=== PATIENT | male | born 1985 | race Caucasian/White ===

== ENCOUNTER 2017-07-29 13:17 | Emergency (ER) | payer OTHER ==
[~2017-07-29] VITALS: Ht 167.6 cm; Wt 68.0 kg
[~2017-07-29 13:17] MED LIST: ALBUTEROL0.09 MG/A1 INH; ALBUTEROL0.09 MG/A2 IH; AMOXICILLIN500 MG PO; ATARAX25 MG PO; BACTRIM DS 8001 TA1 PO; BENADRYL50 MG PO; BENTYL10 MG PO; CEPHALEXIN500 M1 PO; CYCLOBENZAPRINE10 MG PO; DEBROX 15 ML15 M1 OT; FLEXERIL10 MG PO; FLEXERIL5 MG PO; IBU-8800 MG PO; IBU800 MG PO; KEFLEX500 MG PO; MEDROL DOSEPAK4 MG PO; MOTRIN800 MG PO; Motrin,Rufen800 MG PO; NAPROSYN500 MG PO; NKHM; PREDNICOT20 MG PO; PROTONIX40 MG PO; ROBAXIN750 MG PO; TRAMADOL HCL50 MG PO; ULTRAM50 MG PO; VICODIN 5/500 505 MG PO; VICODIN ES 7501 TAB PO; VOLTAREN50 M1 PO; ZANTAC150 MG PO; ZITHROMAX Z PA250 MG PO; ZITHROMAX250 MG PO; ZOFRAN ODT4 MG SL; Zofran4 MG PO
== END 2017-07-29 13:39 | disposition home or self-care (01) ==
LOC: ED 13:17
DX: S61.011A Laceration without foreign body of right thumb without damage to nail, initial encounter (principal); F17.200 Nicotine dependence, unspecified, uncomplicated; W26.0XXA Contact with knife, initial encounter; Y93.89 Activity, other specified; Y92.89 Other specified places as the place of occurrence of the external cause; Y99.9 Unspecified external cause status

== ENCOUNTER 2017-11-23 07:54 | Emergency (ER) | payer SELFPAY ==
[~2017-11-23] VITALS: Ht 167.6 cm; Wt 72.6 kg
[2017-11-23] MEDS ORDERED: FLOXIN10 ML OT (08:10)
[2017-11-23] MEDS ORDERED: CIPRO500 MG PO (08:10)
== END 2017-11-23 08:18 | disposition home or self-care (01) ==
LOC: ED 07:54
DX: H60.91 Unspecified otitis externa, right ear (principal)

== ENCOUNTER 2017-12-20 01:03 | Emergency (ER) | payer SELFPAY ==
[~2017-12-20] VITALS: Ht 167.6 cm; Wt 68.0 kg
[~2017-12-20 01:03] MED LIST changes: +CIPRO500 MG PO; +FLOXIN10 ML OT
== END 2017-12-20 02:45 | disposition home or self-care (01) ==
LOC: ED 01:03
DX: M79.641 Pain in right hand (principal)

== ENCOUNTER 2018-04-24 20:20 | Emergency (ER) | payer SELFPAY ==
[~2018-04-24] VITALS: Ht 167.6 cm; Wt 68.0 kg
[~2018-04-24 20:20] MED LIST changes: +AMOXICILLIN500 M2 PO
[2018-04-24] MEDS ORDERED: AUGMENTIN 875-875 MG PO (20:41)
== END 2018-04-24 21:53 | disposition home or self-care (01) ==
LOC: ED 20:20
DX: H66.002 Acute suppurative otitis media without spontaneous rupture of ear drum, left ear (principal); J02.9 Acute pharyngitis, unspecified

== ENCOUNTER 2019-12-15 23:55 | Inpatient (IN) | payer OTHER ==
[~2019-12-15] VITALS: Ht 172.7 cm; Wt 63.6 kg
[~2019-12-15 23:55] MED LIST changes: +AUGMENTIN 875-875 MG PO
[2019-12-16] VITALS (9 sets, daily range): BP systolic 89–110; BP diastolic 45–78
[2019-12-16 00:19] LABS: BASO # 0.1 10*3/uL (0.0-0.1); BASO % 0.6 % (0.0-1.0); EOS # 0.2 10*3/uL (0.0-0.4); EOS % 2.2 % (1.0-4.0); HEMATOCRIT 46.1 % (42.0-52.0); LYMPH # 1.5 10*3/uL (1.3-4.4); LYMPH % 16.1 % (27.0-41.0); MEAN CELL VOLUME 95.6 fl (80.0-94.0); MEAN CORPUSCULAR HGB 32.4 pg (27.0-31.0); MEAN CORPUSCULAR HGB CONC 33.8 g/dl (33.0-37.0); MEAN PLATELET VOLUME 10.6 fl (9.6-12.3); MONO # 0.8 10*3/uL (0.1-1.0); MONO % 8.4 % (3.0-9.0); NEUT # 6.9 10*3/uL (2.3-7.9); NEUT % 72.4 % (47.0-73.0); PLATELET COUNT AUTOMATED 145 10*3/uL (130-400); RED BLOOD COUNT 4.82 10*6/uL (4.50-5.90); RED CELL DISTRI WIDTH 13.4 % (0-14.5); WHITE BLOOD COUNT 9.5 10*3/uL (4.8-10.8)
[2019-12-16 00:36] LABS: ALBUMIN 3.4 gm/dl (3.1-4.5); ALKALINE PHOSPHATASE 60 U/L (45-117); BUN 16 mg/dl (7-24); CHLORIDE 110 mmol/L (98-107); CREATININE 0.96 mg/dL (0.70-1.30); POTASSIUM 3.4 mmol/L (3.5-5.1); SGOT/AST 80 IU/L (3-35); SGPT/ALT 155 U/L (12-78); SODIUM 140 mmol/L (136-145); TOTAL PROTEIN 7.1 gm/dL (6.4-8.2)
[2019-12-16 00:38] LABS: ACETAMINOPHEN (TYLENOL) < 5.0 ug/ml (10-30); ETHYL ALCOHOL < 3.0 mg/dl (<3)
[2019-12-16 02:29] LABS: BILIRUBIN NEGATIVE (NEGATIVE); BLOOD NEGATIVE (NEGATIVE); CLARITY CLEAR (CLEAR); COLOR YELLOW (YELLOW); GLUCOSE NEGATIVE (NEGATIVE); KETONE NEGATIVE (NEGATIVE); LEUKO ESTERASE NEGATIVE (NEGATIVE); NITRITE NEGATIVE (NEGATIVE); UROBILINOGEN 0.2 E.U./dl (0.2-1.0)
[2019-12-16 02:37] LABS: URINE AMPHETAMINES > 1000 (1000ng/ml); URINE BARBITURATES < 200 (200ng/ml); URINE BENZODIAZEPINES < 200 (200ng/ml); URINE CANNABINOIDS (THC) < 50 (50ng/ml); URINE COCAINE < 300 (300ng/ml); URINE METHADONE < 300 (300ng/ml); URINE OPIATES < 300 (300ng/ml)
[2019-12-16 02:44] LABS: URINE PHENCYCLIDINE < 25 (25ng/ml)
--- NOTE | 2019-12-16 04:00 | NUR ---
A 34 YEAR OLD MALE admitted to [facility], under the services of OPAL Salmeron DO with a diagnosis of DRUG OVERDOSE. Chief complaint is TOOK ENTIRE BOTTLE OF DOXEPIN. Patient arrived via stretcher from ER. Monitor applied. Initial assessment completed. Vital signs taken and recorded. OPAL SALMERON DO notified of admission to the unit. Orders received. See assessment for past medical history, medications and allergies. Patient and/or family oriented to unit. [facility] visitation policy reviewed. Clothing/patient valuable form completed. JUAN VARELA
[2019-12-16 06:10] LABS: BASO # 0.1 10*3/uL (0.0-0.1); BASO % 0.5 % (0.0-1.0); EOS # 0.1 10*3/uL (0.0-0.4); EOS % 1.3 % (1.0-4.0); LYMPH # 1.6 10*3/uL (1.3-4.4); LYMPH % 16.8 % (27.0-41.0); MEAN CELL VOLUME 96.1 fl (80.0-94.0); MEAN CORPUSCULAR HGB 32.8 pg (27.0-31.0); MEAN CORPUSCULAR HGB CONC 34.1 g/dl (33.0-37.0); MEAN PLATELET VOLUME 11.3 fl (9.6-12.3); MONO # 0.8 10*3/uL (0.1-1.0); NEUT # 6.9 10*3/uL (2.3-7.9); NEUT % 73.1 % (47.0-73.0); PLATELET COUNT AUTOMATED 147 10*3/uL (130-400); RED BLOOD COUNT 4.58 10*6/uL (4.50-5.90); RED CELL DISTRI WIDTH 13.5 % (0-14.5); WHITE BLOOD COUNT 9.4 10*3/uL (4.8-10.8)
[2019-12-16 06:13] LABS: ALBUMIN 3.3 gm/dl (3.1-4.5); BUN 16 mg/dl (7-24); CHLORIDE 110 mmol/L (98-107); CREATININE 0.85 mg/dL (0.70-1.30); POTASSIUM 4.2 mmol/L (3.5-5.1); SGOT/AST 75 IU/L (3-35); SGPT/ALT 150 U/L (12-78); SODIUM 140 mmol/L (136-145); TOTAL PROTEIN 6.9 gm/dL (6.4-8.2)
[2019-12-16 06:22] LABS: ALKALINE PHOSPHATASE 58 U/L (45-117)
--- NOTE | 2019-12-16 07:09 | NUR ---
Shift chart check completed.
--- NOTE | 2019-12-16 08:45 | NUR ---
DR PLEITEZ ROUNDED - PATIENT REMAINS VERY DROWSY & DIFFICULT TO AROUSE BUT DID SOMEWHAT TO VERBAL W/ TACILE STIMULI - SLIGHTLY OPENED EYES. ALLOWED BLOOD TO BE DRAWN BUT WAS UNABLE TO ANSWER ANY QUESTIONS..NATHALIE REMAINS PATENT FOR DK STRAW URINE. IVF INFUSING AT 100cc/hr.
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
--- NOTE | 2019-12-16 09:14 | NUR ---
DR HOLDEN WILLAMS -
--- NOTE | 2019-12-16 10:24 | NUR ---
attempted to see client and he is asleep and not able to be assessed. nursing will let me know when he is awake and alert.
--- NOTE | 2019-12-16 10:37 | NUR ---
SPOKE WITH POISON CONTROL re PATIENT CONDITION. BENZO'S IF NECESSARY TO CONTROL AGGITATION/TREMORS BUT PATIENT SHOULD BE PAST NEEDING THEM. JUST CONTINUE TO MONITOR UNTIL ALERT & ORIENTED. NO FURTHRE TREATMENTS NEEDED
--- NOTE | 2019-12-16 11:53 | NUR ---
Shift chart check completed.24 HR chart check completed.
--- NOTE | 2019-12-16 12:16 | NUR ---
ASSUMED CARE OF THIS PATIENT. HE REMAINS ASLEEP WITH NON LABORED RESPIRATIONS. HEAD OF BED IS ELEVATED. ZELAYA INTACT. IV FLUIDS CONTINUE. NO SEIZURE ACTIVITY. ROOM AIR PULSE OX IS >95%. HE IS IN DIRECT VIEW OF ICCU STAFF AT ALL TIMES. HIS BELONGINGS ARE BAGGED/TAGGED AND STORED IN BOTTOM CUPBOARD AT THE FOOT OF HIS BED. BED EXIT ALARM IS ACTIVATED.
--- NOTE | 2019-12-16 15:00 | NUR ---
IV FLUIDS COMPLETE. WHEN DISCONNECTING THE TUBING PT DID ASK "WHERE AM I?" AND WHEN TOLD WHY HE WAS HERE HE SAID "NO" HE DIDN'T REMEMBER TAKING PILLS. BACK TO SLEEP.
--- NOTE | 2019-12-16 15:57 | NUR ---
PT AWAKE DURING VITAL SIGN/ASSESSMENT. HE C/O PAIN IN HIS NECK "CAN'T MOVE MY HEAD". PILLOW REPOSITIONED, PT YELLED "OW" THEN BACK TO SLEEP. HE'S BEEN LYING WITH HIS HEAD TURNED TO THE LEFT MOST OF THE DAY. HE MOVES ALL OF HIS EXTREMITIES IN HIS SLEEP.
--- NOTE | 2019-12-16 20:13 | NUR ---
1930 RESTING IN BED WITH HOB ELEVATED. SIDE RAILS UP X'S 2. BED EXIT ON. REMAINS IN DIRECT SIGHT OF NURSES STATION. HEP LOCK INTACT YOHAN. PULSE OX 100% ON RA. OPENED EYES TO NAME. DID NOT FOLLOW COMMANSD AT PRESENT TIME. ZELAYA PATENT AND DRAINING YELLOW URINE. HEAD REMAINS TURNED TO THE LEFT SIDE. NO DISTRESS NOTED. WILL CONT TO MONITOR.
--- NOTE | 2019-12-16 23:20 | NUR ---
2320 AWAKE. TURNED ON RIGHT SIDE. STATES "MY NECK HURTS." TYLENOL 2 PO GIVEN FOR THIS. TOOK PO MEDS WITHOUT DIFFICULTY. REQUESTING "SOMETHING TO EAT". FELL BACK TO SLEEP WHILE OBTAINING BOXED LUNCH FOR PT. WILL CONT TO MONITOR.
[2019-12-17] VITALS: BP 99/65
--- NOTE | 2019-12-17 00:20 | NUR ---
0020 EARLIER TYLENOL APPEARS EFFECTIVE. NO FURTHER C/O'S NECK PAIN VOICED. 0400 REMAINS SLEEPING WITHOUT DISTRESS. RESPIRATIONS EASY AND UNLABORED. CHANGED POSITION IN BED PER SELF.
[2019-12-17 04:00] VITALS: BP 98/56
[2019-12-17 05:40] LABS: ALBUMIN 3.1 gm/dl (3.1-4.5); ALKALINE PHOSPHATASE 56 U/L (45-117); BUN 16 mg/dl (7-24); CHLORIDE 112 mmol/L (98-107); CREATININE 0.96 mg/dL (0.70-1.30); SGOT/AST 92 IU/L (3-35); SGPT/ALT 150 U/L (12-78); SODIUM 142 mmol/L (136-145); TOTAL PROTEIN 6.7 gm/dL (6.4-8.2)
--- NOTE | 2019-12-17 06:08 | NUR ---
0500 AWAKENED FOR AM LABS, BUT FALLS BACK TO SLEEP IMMEDIATELY. 0600 REMAINS SLEEPING WIHTOUT DISTRESS. HEP LOCK INTACT. BED ALARM REMAINS ON. CONDITION GUARDED.
--- NOTE | 2019-12-17 07:11 | NUR ---
Shift chart check completed.24 HR chart check completed.
[2019-12-17 07:15] LABS: HEP B CORE AB, IGM Negative (Negative); HEPATITIS B SURFACE AG Negative (Negative)
[2019-12-17 07:28] LABS: HEPATITIS C VIRUS ANTIBODY >11.0 s/co (0.0-0.9)
--- NOTE | 2019-12-17 07:31 | NUR ---
DR Symone PLEITEZ NOTIFIED OF CRITICAL VALUE, POSITIVE HEPATITIS C ANTIBODIES.
--- NOTE | 2019-12-17 07:56 | NUR ---
ON ASSESSMENT PATIENT IS SLEEPING. HE AROUSED TO HIS NAME, SAID "YES" HE WAS HUNGRY AND WHEN GIVEN THE CHOICES SAID "YES" OR "NO" AND "TEA". HE REPOSITIONS HIMSELF FOR COMFORT. HIS SKIN IS WARM AND DRY. BED IS IN LOW POSITION WITH WHEELS LOCKED, SIDERAILS UP, AND BED EXIT ALARM ACTIVATED. HIS PERSONAL BELONGINGS REMAINS BAGGED/TAGGED AND IN BOTTOM OF CUPBOARD AT THE FOOT OF HIS BED. HE IS IN FULL VIEW OF [facility] STAFF AT ALL TIMES. ZELAYA PATENT SMALL AMOUNT SARAY URINE. SEE ALL APPROPRIATE INTERVENTIONS.
[2019-12-17 08:00] VITALS: BP 96/60
--- NOTE | 2019-12-17 08:20 | NUR ---
AWAKENED WHEN BREAKFAST ARRIVED. HE'S EATING WITHOUT DIFFICULTY. COOPERATIVE. I ASKED IF HE WAS TRYING TO WHEN HE TOOK THE BOTTLE OF PILLS AND HE SAID "I DON'T KNOW".
--- NOTE | 2019-12-17 08:53 | NUR ---
PT WAS AWAKE, QUICKLY ATE ALL OF HIS PANCAKES AND OJ AND IS QUICKLY BACK TO SLEEP.
--- NOTE | 2019-12-17 08:57 | NUR ---
TASHA LOWE NOTIFIED THAT PT IS ABLE TO STAY AWAKE AND CONVERSE THIS AM. DR PLEITEZ HAS VISITED.
--- NOTE | 2019-12-17 09:19 | NUR ---
TASHA LOWE IN TO SEE PATIENT.
--- NOTE | 2019-12-17 09:33 | NUR ---
psychiatric assessment: met with client, he is aroused easily. he reports that he doesnt remember a lot of what happened but reports that he did take pills, does not know whose pills there were as he doesnt have any medications, and does not seek any mental health care. he does report one attempt years ago as an overdose but reports he did not get any help at that time. he reports that he is always depressed and always has suicidal thoughts due to stress that he reports as he cant pay his bills, he cant get a job, fighting with his girlfriend. he reports that he resides here and there. he does not feel safe to be dc and does continue to have suicidal thoughts. i discussed with his nurse, dr golden and dr graves , my recommendation, they are in agreement and i will look for an inpatient bed for him. he has no psychosis, he is alert and oriented to person and place. he denies any substance abuse but he was postive for amphetamines. he is cooperative and i discusseed with his my recommendation for further care and he was in agreement.
--- NOTE | 2019-12-17 10:53 | NUR ---
PT WAS AWAKENED AND OFFERED THE PHONE TO SPEAK WITH HIS MOTHER WHO HAD CALLED HERE. PT DECLINED. QUICKLY BACK TO SLEEP.
[2019-12-17 12:00] VITALS: BP 97/58
--- NOTE | 2019-12-17 12:15 | NUR ---
TASHA LOWE HAS CALLED WITH REQUEST TO FAX SIGNED PINK SLIP TO [facility] AND THIS HAS BEEN DONE. PT MOSTLY SLEEPING.
--- NOTE | 2019-12-17 12:42 | NUR ---
PT DECLINED LUNCH.
--- NOTE | 2019-12-17 14:19 | NUR ---
[facility] DID CALL THIS MORNING TO CHECK ON PT'S STATUS. NO NEW RECOMMENDATIONS FROM THEM.
--- NOTE | 2019-12-17 15:54 | NUR ---
TASHA LOWE CALLED WITH ACCEPTING PHYSICIAN, DR PRICE, AT [facility]. I GAVE A NURSE TO NURSE TO TASHA. DR PLEITEZ HAS BEEN NOTIFIED FOR DISCHARGE ORDER. [facility] [employer] [facility] IS ATTEMPTING TO MAKE TRANSPORTATION ARRANGEMENTS.
[2019-12-17 16:00] VITALS: BP 91/49
--- NOTE | 2019-12-17 16:51 | NUR ---
PT AWAKENED AND INFORMED OF PLAN OF CARE TO BE DISCHARGED TO [facility] IN [place]. HE SAID "I DON'T WANT TO GO THERE". I INFORMED HIM OF THE PINK SLIP. HE SAID "HOW DID THEY FIND ME? I WENT TO THE [facility] TO ". ENCOURAGEMENT GIVEN TO GET HELP. HE SAYS THAT I CAN LET HIS MOTHER AND SISTER KNOW WHERE HE IS GOING AND HE SAID "YES" BUT "NO" HE DIDN'T WANT TO TALK TO EITHER OF THEM. GIL ORDERED FOR HIM. HIS ZELAYA CATHETER HAS BEEN REMOVED. HE REMAINS COOPERATIVE. I INFORMED HIM THAT IN HIS BAG OF BELONGINGS IS A SLIP OF PAPER WITH THEIR PHONE NUMBERS AND HIS SCHEDULED APPT FOR JANUARY 04 AT 1430.
--- NOTE | 2019-12-17 17:29 | NUR ---
MOTHER CALLED IN. PT GAVE ME PERMISSION TO LET HER KNOW WHERE HE IS GOING AND SHE HAS BEEN NOTIFIED.
--- NOTE | 2019-12-17 17:58 | NUR ---
[facility] NOTIFIED PT ON HIS WAY. PT'S SISTER NOTIFIED ALSO.
--- NOTE | 2019-12-17 17:59 | NUR ---
HEP LOCK REMOVED LEFT UPPER ARM. PT DISCHARGED IN STABLE CONDITION VIA [facility] WITH HIS BAG OF CLOTHES.
== END 2019-12-17 17:58 | disposition home health service (06) | DRG 817 ==
LOC: ED 23:55 → ICCU 12-16 03:41 → EDHOLD 12-16 03:41 → ICCU 12-16 03:51
PROVIDERS: Emergency Medicine; Internal Medicine; Student in an Organized Health Care Education/Training Program; ADMIT Internal Medicine
DX: T43.012A Poisoning by tricyclic antidepressants, intentional self-harm, initial encounter (principal); D75.89 Other specified diseases of blood and blood-forming organs; E87.6 Hypokalemia; E87.8 Other disorders of electrolyte and fluid balance, not elsewhere classified; I95.9 Hypotension, unspecified; F15.10 Other stimulant abuse, uncomplicated; R73.9 Hyperglycemia, unspecified; F43.21 Adjustment disorder with depressed mood; R76.8 Other specified abnormal immunological findings in serum; R74.0 Nonspecific elevation of levels of transaminase and lactic acid dehydrogenase [LDH]; Y92.89 Other specified places as the place of occurrence of the external cause; Z91.5 Personal history of self-harm

== ENCOUNTER 2020-03-15 16:29 | Emergency (ER) | payer OTHER ==
[~2020-03-15] VITALS: Wt 61.2 kg
== END 2020-03-15 20:05 | disposition left against medical advice (07) ==
LOC: ED 16:29
DX: S20.412A Abrasion of left back wall of thorax, initial encounter (principal); F32.9 Major depressive disorder, single episode, unspecified; Y08.89XA Assault by other specified means, initial encounter; Y93.89 Activity, other specified; Y92.89 Other specified places as the place of occurrence of the external cause; Y99.8 Other external cause status

== ENCOUNTER 2020-07-16 18:11 | Emergency (ER) | payer OTHER ==
[~2020-07-16] VITALS: Ht 167.6 cm; Wt 65.8 kg
[2020-07-16 19:02] LABS: BASO # 0.1 10*3/uL (0.0-0.1); BASO % 0.8 % (0.0-1.0); EOS # 0.4 10*3/uL (0.0-0.4); EOS % 4.4 % (1.0-4.0); HEMATOCRIT 48.4 % (42.0-52.0); LYMPH # 1.8 10*3/uL (1.3-4.4); LYMPH % 21.7 % (27.0-41.0); MEAN CORPUSCULAR HGB 31.7 pg (27.0-31.0); MEAN CORPUSCULAR HGB CONC 34.5 g/dl (33.0-37.0); MEAN PLATELET VOLUME 10.8 fl (9.6-12.3); MONO # 0.7 10*3/uL (0.1-1.0); MONO % 8.1 % (3.0-9.0); NEUT # 5.4 10*3/uL (2.3-7.9); NEUT % 64.8 % (47.0-73.0); PLATELET COUNT AUTOMATED 174 10*3/uL (130-400); RED BLOOD COUNT 5.26 10*6/uL (4.50-5.90); RED CELL DISTRI WIDTH 12.9 % (0-14.5); WHITE BLOOD COUNT 8.3 10*3/uL (4.8-10.8)
[2020-07-16 19:21] LABS: ACETAMINOPHEN (TYLENOL) < 5.0 ug/ml (10-30); ALBUMIN 3.8 gm/dl (3.1-4.5); ALKALINE PHOSPHATASE 68 U/L (45-117); BUN 17 mg/dl (7-24); CHLORIDE 108 mmol/L (98-107); CPK 197 U/L (39-308); CREATININE 0.85 mg/dL (0.70-1.30); ETHYL ALCOHOL < 3.0 mg/dl (<3); POTASSIUM 3.8 mmol/L (3.5-5.1); SGOT/AST 115 IU/L (3-35); SGPT/ALT 238 U/L (12-78); SODIUM 138 mmol/L (136-145); TOTAL PROTEIN 7.9 gm/dL (6.4-8.2)
[2020-07-16 19:57] LABS: BILIRUBIN Negative (Negative); BLOOD 1+ (Negative); CLARITY Clear (Clear); COLOR Yellow (Yellow); GLUCOSE Negative (Negative); KETONE Negative (Negative); LEUKO ESTERASE Negative (Negative); NITRITE Negative (Negative); PH 7.5 (4.5-8.0)
[2020-07-16 20:00] LABS: URINE AMPHETAMINES > 1000 (1000ng/ml); URINE BARBITURATES < 200 (200ng/ml); URINE BENZODIAZEPINES < 200 (200ng/ml); URINE CANNABINOIDS (THC) < 50 (50ng/ml); URINE COCAINE < 300 (300ng/ml); URINE METHADONE < 300 (300ng/ml); URINE OPIATES < 300 (300ng/ml); URINE PHENCYCLIDINE < 25 (25ng/ml)
[2020-07-16 20:05] LABS: BACTERIA 2+; RBC 31-40 rbc/hpf (0-2)
== END 2020-07-17 00:47 | disposition home health service (06) ==
LOC: ED 18:11
PROVIDERS: Nurse Practitioner Family
DX: F43.21 Adjustment disorder with depressed mood (principal); Z20.828 Contact with and (suspected) exposure to other viral communicable diseases

== ENCOUNTER 2020-12-14 17:31 | Emergency (ER) | payer OTHER ==
[~2020-12-14] VITALS: Wt 65.8 kg
[2020-12-14] MEDS ORDERED: NAPROSYN500 MG PO (19:01)
[2020-12-14] MEDS ORDERED: TYLENOL325 M1 PO (19:01)
== END 2020-12-14 19:50 | disposition home or self-care (01) ==
LOC: ED 17:31
DX: S52.501A Unspecified fracture of the lower end of right radius, initial encounter for closed fracture (principal); W19.XXXA Unspecified fall, initial encounter; Y93.89 Activity, other specified; Y92.89 Other specified places as the place of occurrence of the external cause; Y99.8 Other external cause status

== ENCOUNTER 2021-01-28 16:14 | Inpatient (IN) | payer OTHER ==
[~2021-01-28 16:14] MED LIST changes: +TYLENOL325 M1 PO
[2021-01-28 16:15] VITALS: BP 112/87
[2021-01-28 17:45] LABS: BASO # 0.1 10*3/uL (0.0-0.1); BASO % 0.8 % (0.0-1.0); EOS # 0.3 10*3/uL (0.0-0.4); EOS % 3.5 % (1.0-4.0); HEMATOCRIT 44.6 % (42.0-52.0); LYMPH # 1.6 10*3/uL (1.3-4.4); LYMPH % 18.7 % (27.0-41.0); MEAN CELL VOLUME 93.3 fl (80.0-94.0); MEAN CORPUSCULAR HGB 32.2 pg (27.0-31.0); MEAN CORPUSCULAR HGB CONC 34.5 g/dl (33.0-37.0); MEAN PLATELET VOLUME 11.3 fl (9.6-12.3); MONO % 11.7 % (3.0-9.0); NEUT # 5.5 10*3/uL (2.3-7.9); NEUT % 65.1 % (47.0-73.0); PLATELET COUNT AUTOMATED 137 10*3/uL (130-400); RED BLOOD COUNT 4.78 10*6/uL (4.50-5.90); RED CELL DISTRI WIDTH 12.7 % (0-14.5); WHITE BLOOD COUNT 8.4 10*3/uL (4.8-10.8)
[2021-01-28 18:03] LABS: ALBUMIN 3.4 gm/dl (3.1-4.5); ALKALINE PHOSPHATASE 78 U/L (45-117); BUN 22 mg/dl (7-24); CHLORIDE 108 mmol/L (98-107); CPK 122 U/L (39-308); CREATININE 0.93 mg/dL (0.70-1.30); SGOT/AST 244 IU/L (3-35); SGPT/ALT 354 U/L (12-78); SODIUM 137 mmol/L (136-145); TOTAL PROTEIN 7.4 gm/dL (6.4-8.2)
[2021-01-28 18:20] LABS: ACETAMINOPHEN (TYLENOL) < 5.0 ug/ml (10-30); ETHYL ALCOHOL < 3.0 mg/dl (<3)
[2021-01-28 18:22] LABS: BILIRUBIN Negative (Negative); BLOOD 2+ (Negative); CLARITY Clear (Clear); COLOR Yellow (Yellow); GLUCOSE Negative (Negative); KETONE Negative (Negative); LEUKO ESTERASE Negative (Negative); NITRITE Negative (Negative)
[2021-01-28 18:29] LABS: URINE AMPHETAMINES > 1000 (1000ng/ml); URINE BARBITURATES < 200 (200ng/ml); URINE BENZODIAZEPINES < 200 (200ng/ml); URINE CANNABINOIDS (THC) > 50 (50ng/ml); URINE COCAINE < 300 (300ng/ml); URINE METHADONE < 300 (300ng/ml); URINE OPIATES < 300 (300ng/ml)
[2021-01-28 18:37] LABS: BACTERIA TRACE; RBC 41-50 rbc/hpf (0-2); WBC 0-2 wbc/hpf (0-5)
[2021-01-28 18:38] LABS: MUCOUS 1+
[2021-01-28 18:41] LABS: URINE PHENCYCLIDINE < 25 (25ng/ml)
[2021-01-29 04:42] LABS: BASO # 0.1 10*3/uL (0.0-0.1); EOS # 0.4 10*3/uL (0.0-0.4); EOS % 6.3 % (1.0-4.0); HEMATOCRIT 46.4 % (42.0-52.0); LYMPH # 2.4 10*3/uL (1.3-4.4); LYMPH % 36.1 % (27.0-41.0); MEAN CELL VOLUME 92.8 fl (80.0-94.0); MEAN CORPUSCULAR HGB 31.6 pg (27.0-31.0); MEAN CORPUSCULAR HGB CONC 34.1 g/dl (33.0-37.0); MEAN PLATELET VOLUME 11.3 fl (9.6-12.3); MONO # 0.8 10*3/uL (0.1-1.0); MONO % 12.3 % (3.0-9.0); NEUT # 2.9 10*3/uL (2.3-7.9); NEUT % 44.2 % (47.0-73.0); PLATELET COUNT AUTOMATED 133 10*3/uL (130-400); RED CELL DISTRI WIDTH 12.6 % (0-14.5); WHITE BLOOD COUNT 6.7 10*3/uL (4.8-10.8)
[2021-01-29 05:01] LABS: ALBUMIN 3.2 gm/dl (3.1-4.5); BUN 22 mg/dl (7-24); CHLORIDE 110 mmol/L (98-107); CREATININE 0.69 mg/dL (0.70-1.30); POTASSIUM 3.9 mmol/L (3.5-5.1); SGOT/AST 187 IU/L (3-35); SGPT/ALT 312 U/L (12-78); SODIUM 139 mmol/L (136-145)
[2021-01-29 05:02] LABS: ALKALINE PHOSPHATASE 78 U/L (45-117); TOTAL PROTEIN 6.9 gm/dL (6.4-8.2)
[2021-01-29] MEDS ORDERED: DOXYCYCLINE MO100 M1 PO (20:10)
[2021-01-30 10:52] VITALS: BP 90/51
[2021-02-01 17:06] LABS: ORGANISM ID Final report (.)
== END 2021-01-30 12:18 | DRG 383 ==
LOC: ED 16:14 → EDHOLD 19:41
PROVIDERS: Emergency Medicine; Internal Medicine; ADMIT Internal Medicine; ATTEND Internal Medicine
DX: L03.115 Cellulitis of right lower limb (principal); R45.851 Suicidal ideations; F17.210 Nicotine dependence, cigarettes, uncomplicated; E87.8 Other disorders of electrolyte and fluid balance, not elsewhere classified; R74.01 Elevation of levels of liver transaminase levels; E44.1 Mild protein-calorie malnutrition; Z20.822 Contact with and (suspected) exposure to COVID-19; R76.8 Other specified abnormal immunological findings in serum; F15.10 Other stimulant abuse, uncomplicated; F43.21 Adjustment disorder with depressed mood; Z59.0 Homelessness; Z91.5 Personal history of self-harm; Z80.1 Family history of malignant neoplasm of trachea, bronchus and lung